=== PATIENT | male | born 1965 | race African-American/Black ===

== ENCOUNTER 2020-09-26 02:40 | Inpatient (IN) ==
[2020-09-26] MEDS ORDERED: hydrALAZINE 20 MG/1 ML VIAL ONE (03:16)
[2020-09-26] MEDS ORDERED: MORPHINE 2 MG/1 ML SYRINGE IV STA (03:33)
[2020-09-26] MEDS ORDERED: COLCHICINE 0.6 MG CAPSULE PO STA ×2 (03:33→06:14)
[2020-09-26] MEDS ORDERED: DEXAMETHASONE 4 MG/1 ML VIAL IV STA (03:33)
[2020-09-26] MEDS ORDERED: hydrALAZINE 20 MG/1 ML VIAL IV STA (03:33)
[2020-09-26] MEDS ORDERED: ONDANSETRON 4 MG/2 ML VIAL IV STA (03:33)
[2020-09-26 03:55] LABS: Basophils % 0.4 % (0.0-0.8); Eosinophils # 0.1 10*3/uL (0.0-0.87); Eosinophils % 2.1 % (0.00-10.9); Hematocrit 37.2 VOL% (42.0-52.0); Hemoglobin 12.8 GM/DL (14.0-18.0); Immature Granulocytes % 0.4 %; Immature Granulocytes Absolute 0.03 #; Lymphocytes # 2.2 10*3/uL (1.4-4.0); Lymphocytes % 33.1 % (21.2-54.2); Mean Corpuscular HGB Conc 34.4 GM/DL (32-36); Mean Corpuscular Volume 94.7 FL (87-102); Mean Platelet Volume 10.4 FL (9.6-12.0); Monocytes % 8.6 % (1.7-12.7); Neutrophils % 55.4 % (38.7-73.9); Platelet Count 208 T/CUMM (130-400); Red Blood Count 3.93 MC/CUMM (3.8-5.5); Red Cell Distribution Width 12.4 % (9.3-17.3); White Blood Count 6.7 T/CUMM (4-12)
[2020-09-26] MEDS ORDERED: LABETALOL 20 MG/4 ML SYRINGE IV ONE (04:11)
[2020-09-26] MEDS ORDERED: LABETALOL 20 MG/4 ML SYRINGE IV STA (04:11)
[2020-09-26 04:32] LABS: Albumin 3.4 G/DL (3.4-5.0); Bilirubin,Total 0.4 MG/DL (0.20-1.00); Calcium 8.7 MG/DL (8.5-10.1); Osmolality,Calculated 290.1 MOS/KG (273-304); Potassium 3.5 MMOL/L (3.5-5.1); Total Protein 7.3 G/DL (6.4-8.2); Uric Acid 9.4 MG/DL (3.5-7.2)
[2020-09-26] MEDS ORDERED: NITROGLYCERIN 2% OINT 1 INCH/GM PACK TOP STA (04:35)
[2020-09-26] MEDS ORDERED: niCARdipine INJ 25 MG in SODIUM CHLORIDE 0.9% 240 ML IV PRN (04:36)
[2020-09-26] MEDS ORDERED: niCARdipine 25 MG/10 ML VIAL IV ONE ×2 (04:41→05:30)
[2020-09-26] MEDS ORDERED: amLODIPine 5 MG TABLET PO STA (04:43)
[2020-09-26] MEDS ORDERED: cloNIDine 0.1 MG TABLET PO STA (04:43)
[2020-09-26] MEDS ORDERED: amLODIPine 10 MG TABLET ONE (04:44)
[2020-09-26] MEDS ORDERED: cloNIDine 0.1 MG TABLET ONE (04:45)
[2020-09-26 04:52] LABS: Barbiturates Screen,Urine Negative (Negative); Benzodiazepines Screen,Urine Negative (Negative); Cannabinoid Screen,Urine Negative (Negative); Opiate Screen,Urine Negative (Negative); Phencyclidine Screen,Urine Negative (Negative)
[2020-09-26] MEDS ORDERED: ACETAMINOPHEN 325 MG TABLET PO PRN (06:20)
[2020-09-26] MEDS ORDERED: ONDANSETRON 4 MG/2 ML VIAL IV PRN (06:20)
[2020-09-26] MEDS ORDERED: ALBUTEROL 2.5 MG/3 ML NEB RESP TX PRN (06:20)
[2020-09-26] MEDS ORDERED: DOCUSATE SODIUM 100 MG CAPSULE PO PRN (06:20)
[2020-09-26] MEDS ORDERED: MORPHINE 2 MG/1 ML SYRINGE IV PRN (06:20)
[2020-09-26] MEDS ORDERED: SODIUM CHLORIDE 0.9% 1,000 ML IV SCH (06:30)
[2020-09-26] MEDS ORDERED: ASPIRIN EC 81 MG TABLET PO SCH (09:00)
[2020-09-26] MEDS ORDERED: LOSARTAN 25 MG TABLET PO SCH (09:00)
[2020-09-26] MEDS ORDERED: amLODIPine 5 MG TABLET PO SCH (09:00)
[2020-09-26] MEDS ORDERED: allopurinoL 300 MG TABLET PO SCH (09:00)
[2020-09-26 10:06] VITALS: BP 155/88
== END 2020-09-26 09:59 | disposition left against medical advice (07) | DRG 305 ==
LOC: N.ED 02:40 → N.EDINP 05:33 → SUATTDRO 05:33 → N.EDINP 09:58
PROVIDERS: ADMIT Family Medicine; ATTEND Family Medicine